=== PATIENT | male | born 1960 | race Caucasian/White ===

== ENCOUNTER 2017-11-13 11:31 | Emergency (ER) | payer OTHER ==
[2017-11-13] MEDS ORDERED: Ibuprofen TAB* 600 MG PO ONE (11:55)
--- NOTE | 2017-11-13 13:46 | RAD ---
Indication: LEFT leg radicular pain. Weakness at the LEFT foot. Comparison: July 14, 2004 MRI Technique: [employer] (NIH)a 1.5 Renea [id number] with GEM suite. Noncontrast MRI lumbar sacral spine. Report: Unremarkable conus medullaris and cauda equina. Aside from mild multilevel fatty type reactive endplate change bone marrow signal is normal throughout the [id number]. Negative for fracture or spondylolysis. Minimal grade 1 degenerative L4-L5 anterolisthesis new compared with the 2004 exam. T12-L1: Moderate disc space narrowing, desiccation, mild annular disc bulge. Negative for acquired spinal stenosis. L1-L2: Small Schmorl node endplate herniations without additional finding. L2-L3: Small Schmorl node endplate herniations without additional finding. L3-L4: Small Schmorl node endplate herniation without additional finding. L4-L5: Moderate disc space narrowing, desiccation, and mild annular disc bulge in addition to uncovering degenerative anterolisthesis. Negative for resulting central canal stenosis. Degenerative spondylosis and severe facet joint osteoarthritis results in RIGHT greater than LEFT lateral recess stenosis and moderate bilateral foraminal stenosis new compared with the 2004 exam. L5-S1: Moderate disc space narrowing and desiccation. Mild dorsal disc bulge. Negative for central canal stenosis. Negative for significant lateral recess stenosis. Degenerative spondylosis and facet joint osteoarthritis results in mild RIGHT and moderate LEFT foraminal stenosis without significant change. IMPRESSION: 1. At L4-L5 there is RIGHT greater than LEFT lateral recess stenosis and moderate bilateral foraminal stenosis new compared with the 2004 exam. 2. At L5-S1 there is mild RIGHT and moderate LEFT foraminal stenosis without significant interval change.
[2017-11-13] MEDS ORDERED: traMADol TAB* 50 MG PO ONE (14:22)
[2017-11-13 14:50] VITALS: BP 134/93
--- NOTE | 2017-11-22 23:14 | ED ---
Vanesa Santana Edward, scribed for Lee Townsend on 11/13/17 at 1143 . Back Pain - HPI Summary HPI Summary: 57 y/o male presents to the ED c/o severe L foot pain at the bottom of the foot starting this morning. Pt states pain is aggravated with pressure at the bottom of L foot this morning. Associated sx: episode of numbness and weakness at L foot this morning. Pt reports no weakness now. Sx started with back pain lasting 4 weeks. Pt c/o lower back pain behind the buttocks radiating down L leg to the L foot, onset after bending down quickly 4 weeks ago. Pt has been dealing with dropped foot as well. Denies incontinence. Pt has been to physical therapy. - History of Current Complaint Chief Complaint: EDBackInjuryPain Stated Complaint: BACK PAIN/DROP FOOT Time Seen by Provider: 11/13/17 11:39 Hx Obtained From: Patient Onset/Duration: Lasting Weeks, Still Present Onset/Duration: Started Weeks Ago Timing: Constant Back Pain Location: Is Discrete @ - lower back, Radiates To - down L leg Pain Intensity: 7 Aggravating Symptom(s): Walking - standing Alleviating Symptom(s): Nothing Associated Signs And Symptoms: Positive: Weakness - L foot, Numbness - L foot, Pain with Weight Bearing. Negative: Bladder Incontinence, Bowel Incontinence - Allergies/Home Medications Allergies/Adverse Reactions: Allergies Allergy/AdvReac Type Severity Reaction Status Date / Time No Known Allergies Allergy Verified 11/13/17 11:35 Home Medications: Home Medications Metoprolol Tartrate TAB* [Lopressor TAB*] 25 mg PO DAILY 11/13/17 [History Confirmed 11/13/17] PMH/Surg Hx/FS Hx/Imm Hx Previously Healthy: No Cardiovascular History: Denies: Hx Congestive Heart Failure History: Reports: Hx Kidney Stones Infectious Disease History: No Infectious Disease History: Denies: Traveled Outside the [place] in Last 30 Days - Family History Known Family History: Positive: Unknown - Social History Occupation: Employed Full-time Lives: With Family Review of Systems Constitutional: Negative Eyes: Negative ENT: Negative Cardiovascular: Negative Respiratory: Negative Gastrointestinal: Negative Genitourinary: Negative Positive: Arthralgia - L foot and lower back Skin: Negative Positive: Weakness - L foot, Numbness - L foot Psychological: Normal All Other Systems Reviewed And Are Negative: Yes Physical Exam - Summary Physical Exam Summary: Appearance: Well appearing, no pain distress Skin: warm, dry, reflects adequate perfusion Head/face: normal Eyes: EOMI, JENA ENT: normal Neck: supple, non-tender Respiratory: CTA, breath sounds present Cardiovascular: RRR, pulses symmetrical Abdomen: non-tender, soft Bowel: present Musculoskeletal: Tenderness over plantar aspect of L foot. L leg strength 4/5. Neuro: normal, sensory motor intact, A&Ox3 Triage Information Reviewed: Yes Vital Signs On Initial Exam: Initial Vitals Temp Pulse Resp BP Pulse Ox 98.9 F 70 19 156/87 98 11/13/17 11:31 11/13/17 11:31 11/13/17 11:31 11/13/17 11:31 11/13/17 11:31 Vital Signs Reviewed: Yes Diagnostics - Vital Signs Vital Signs Temp Pulse Resp BP Pulse Ox 11/13/17 11:31 98.9 F 70 19 156/87 98 - Laboratory Lab Statement: Any lab studies that have been ordered have been reviewed, and results considered in the medical decision making process. - Additional Comments Diagnostic Additional Comments: LUMBAR SPINE MRI - 1. At L4-L5 there is RIGHT greater than LEFT lateral recess stenosis and moderate bilateral foraminal stenosis new compared with the 2004 exam. 2. At L5-S1 there is mild RIGHT and moderate LEFT foraminal stenosis without significant interval change. Back Pain Course/Dx - Course Assessment/Plan: 57 y/o male c/o L foot pain at the bottom of the foot. Pt has been dealing with lower back pain and dropped foot for the past 4 weeks. Pt has been to physical therapy. LUMBAR SPINE MRI - 1. At L4-L5 there is RIGHT greater than LEFT lateral recess stenosis and moderate bilateral foraminal stenosis new compared with the 2004 exam. 2. At L5-S1 there is mild RIGHT and moderate LEFT foraminal stenosis without significant interval change. Pt will be d/c home with f/u with PCP. - Diagnoses Differential Diagnosis/HQI/PQRI: Positive: Arthritis, Cauda Equina Syndrome, Compressive Cord Syndrome, Fracture, Herniated Disc, Strain Provider Diagnoses: Radiculitis, Sciatica Discharge - Sign-Out/Discharge Documenting (check all that apply): Discharge - Discharge Plan Condition: Stable Disposition: HOME Prescriptions: Cyclobenzaprine TAB* [Flexeril 10 MG TAB*] 10 mg PO TID PRN #15 tab MDD 3 PRN Reason: Pain Ibuprofen TAB* [Motrin TAB* 600 MG] 600 mg PO Q8H PRN #20 tab MDD 3 PRN Reason: Pain Tramadol HCl [Ultram] 50 mg PO 15 #15 tab MDD 3 Patient Education Materials: Sciatica (ED) Forms: *Work Release Referrals: Park Moss MD [Primary Care Provider] - If Needed () Luisa Suarez MD [Medical Doctor] - 4 Days (PLEASE F/U IN 3-5 DAYS) Additional Instructions: RETURN TO THE ED FOR CHANGING OR WORSENING OF SYMPTOMS - Billing Disposition and Condition Condition: STABLE Disposition: HOME The documentation as recorded by the Vanesa young Edward accurately reflects the service I personally performed and the decisions made by Kristian villanueva Emmanuel.
== END 2017-11-13 14:49 | disposition home or self-care (01) ==
LOC: ED 11:31
DX: M79.672 Pain in left foot (principal); M54.5 Low back pain; M54.16 Radiculopathy, lumbar region; M54.30 Sciatica, unspecified side
CPT/HCPCS: 72148; 99282; A9270-GY